=== PATIENT | female | born 2000 | race Caucasian/White ===

== ENCOUNTER 2020-04-24 18:46 | Observation (INO) | payer OTHER ==
[2020-04-24 19:48] LABS: Bilirubin Negative (Negative); Blood, Urine Negative (Negative); Clarity Turbid (Clear); Glucose, Urine (Dipstick) Normal (Negative); Ketone, Urine Negative (Negative); Leukocyte Negative Leu/uL (Negative); Nitrite 2+ (Negative); Protein, Urine (Dipstick) Negative (Neg-Trace); RBC/HPF 0-3 HPF (0-3); Specific Gravity, Urine 1.026 (1.002-1.036); Squamous Epithelial 0-3 HPF (0-3); Urobilinogen Normal mg/dL (Less than 2); WBC/HPF 0-3 HPF (0-3); pH, Urine 6.5 (5.0-9.0)
[2020-04-24 19:51] LABS: Bacteria/HPF 1+ HPF (None Seen)
[2020-04-24 20:01] LABS: #Eosinphils 0.1 thou/uL (0.0-0.7); #Lymphocytes 2.3 thou/uL (1.20-3.40); #Monocytes 0.6 thou/uL (0.11-0.59); #Neutrophils 5.8 thou/uL (1.40-6.50); %Basophils 0.3 % (0.0-1.0); %Eosinophils 1.3 % (0.0-10.0); %Lymphocytes 26.2 % (21.0-51.0); %Monocytes 7.2 % (0.0-10.0); %Neutrophils 65.1 % (42.0-75.0); Hemoglobin 14.6 g/dL (12.0-16.0); Mean Corpuscular HGB CONC 34.3 g/dL (32.0-36.0); Mean Corpuscular Hemoglobin 33.4 pg (27.0-31.0); Mean Corpuscular Volume 97.3 fL (78.0-98.0); Mean Platelet Volume 9.2 fL (7.4-10.4); Platelet Count 200 thou/uL (130-400); RBC Distribution Width 11.6 % (11.5-14.5); Red Blood Cell (RBC) Count 4.38 mill/uL (4.20-5.40); White Blood Cell (WBC) Count 8.9 thou/uL (4.8-10.8)
[2020-04-24] MEDS ORDERED: cefTRIAXone\\ROCEPHIN 1 GM VIAL ONE (21:31)
--- NOTE | 2020-04-24 21:32 | ULT ---
TRANSABDOMINAL AND ENDOVAGINAL PELVIC ULTRASOUND: HISTORY: Pelvic pain, intermittent x2 weeks. Vaginal bleeding with clots. Previous miscarriage. Serum beta hCG is 174,839 TECHNIQUE: Transabdominal and endovaginal imaging of the uterus is performed. Ovaries are interrogate d with grayscale, color flow, Doppler imaging and spectral wave analysis FINDINGS: Uterus is identified, measuring 11.5 x 6.9 x 7.9 cm. There is a heterogeneous echotexture focus along the anterior myometrium. This heterogeneous structure has multiple cystic foci within it. Lesion may be submucosal in location (external to the endometrial canal). There is an adjacent ill-defined a nechoic focus, measuring 2.1 x 1.8 x 2.5 cm. Within this anechoic focus, no evidence of a gestational sac, yolk sac or pole. The heterogeneous echotexture focus along the anterior myome trium measures 4.6 x 6.6 x 7.2 cm. Left ovary has a small anechoic focus likely representing a dominant follicle measuring 1 cm. Overall left ovary measures 3.2 x 1.7 x 2.2 cm. Right ovary has a normal echotexture measuring 2.1 x 2.4 x 4.4 cm. Free fluid: None Liver Doppler: Vascular flow IMPRESSION: 1. There is an intrauterine mass with multiple anechoic foci suggesting a multicystic structure. Imag ing features raise the possibility of a complete molar . Results of the study discussed with Dr. Ghosh 04/24/2020 at 9:29 PM Code CR Transcribed Date/Time: 04/24/2020 9:41 PM
[2020-04-24] MEDS ORDERED: Lidocaine 1% PF 5 ML VIAL ONE (21:52)
[2020-04-24] MEDS ORDERED: Zolpidem Tartrate 5 MG TAB PO PRN (23:31)
[2020-04-24] MEDS ORDERED: Promethazine HCl 25 MG/ML VIAL IM PRN (23:31)
[2020-04-24] MEDS ORDERED: Ondansetron PF 4 MG/2 ML Vial IVP PRN (23:31)
[2020-04-24] MEDS ORDERED: hydrALAZINE 20 MG/ML VIAL SLOW IVP PRN (23:31)
[2020-04-24] MEDS ORDERED: Ondansetron PF 4 MG/2 ML Vial ONE (23:42)
--- NOTE | 2020-04-24 23:46 | RAD ---
Exam: Chest one view HISTORY:Molar . Comparison: None FINDINGS: Cardiac silhouette: Normal Aorta: Unremarkable Pulmonary vessels: Normal Costophrenic angles: Clear LUNGS: No masses or consolidation. Pneumothorax: None Osseous abnormalities: None IMPRESSION: No acute cardiopulmonary process.
[2020-04-25 00:06] LABS: Mean Corpuscular HGB CONC 34.2 g/dL (32.0-36.0); Mean Corpuscular Hemoglobin 33.6 pg (27.0-31.0); Mean Corpuscular Volume 98.2 fL (78.0-98.0); Platelet Count 194 thou/uL (130-400); RBC Distribution Width 11.4 % (11.5-14.5); Red Blood Cell (RBC) Count 4.18 mill/uL (4.20-5.40); White Blood Cell (WBC) Count 10.8 thou/uL (4.8-10.8)
[2020-04-25 00:27] LABS: ALT (SGPT) 10 U/L (8-55); AST (SGOT) 10 U/L (5-34); Albumin 3.9 g/dL (3.5-5.0); Alkaline Phosphatase 63 U/L (40-110); Anion Gap 14 mmol/L (10-20); BUN (Urea Nitrogen) 13 mg/dL (7.0-18.7); Bilirubin, Total 0.7 mg/dL (0.2-1.2); Calc. Creatinine Clearance 0 mL/min (70-130); Calcium 8.5 mg/dL (7.8-10.44); Carbon Dioxide 21 mmol/L (22-29); Chloride 104 mmol/L (98-107); Estimated GFR-MDRD Greater than 90; Globulin 2.5 g/dL (2.4-3.5); Glucose 76 mg/dL (70-105); Potassium 3.7 mmol/L (3.5-5.1); Protein, Total 6.4 g/dL (6.0-8.3); Sodium 135 mmol/L (136-145)
--- NOTE | 2020-04-25 01:58 | HP ---
CHIEF COMPLAINT: Vaginal bleeding. HISTORY OF PRESENT ILLNESS: This patient is a 19-year-old presenting to the emergency room today with complaints of cramping and brown vaginal bleeding. The patient reports that she had a last menstrual period the 08 of February. In her evaluation the emergency room, there was concerns that the patient is experiencing a molar . She had a quantitative HCG of 174,000 and an ultrasound showing an intrauterine mass with multiple anechoic foci suggesting a multicystic structure suggestive of a complete molar and we were consulted for evaluation and management. On arrival, patient reiterated her story that last menstrual period was the 08 of February, had a positive test earlier this month that she has been attempting to get in to see her OB provider, Ms Arnold Sidney, who took care of her with a previous , but has been unable to make an appointment up to this point. She came to the emergency room because of the increased cramping. She has been feeling in the brownish discharge. The patient otherwise denies fever, cough, headache, chest pain, shortness of breath. She does experience nausea. Denies vomiting. Denies diarrhea or constipation. Denies new rashes, hip problems, knee problems, muscle weakness. She has a brownish discharge, but denies any significant vaginal bleeding or leakage of fluid, change in discharge, urinary urgency or frequency. PAST MEDICAL HISTORY: Negative. PAST SURGICAL HISTORY: Negative. OB HISTORY: She has had one term delivery and has had two miscarriages, one she reports to be at 16 weeks and the other one sounds to be about first trimester. SOCIAL HISTORY: Denies drug, alcohol, or tobacco use. PHYSICAL EXAMINATION: VITAL SIGNS: Reviewed and within normal limits. GENERAL: She appears to be in no acute distress. She is alert, oriented, cooperative, and pleasant to interact with. HEENT: Head is normocephalic, atraumatic. LUNGS: Clear to auscultation bilaterally. HEART: Regular rate and rhythm. ABDOMEN: Soft, nontender. EXTREMITIES: Nontender, nonedematous. LABORATORY DATA: Show a white count of 8.9, hemoglobin of 14.6, hematocrit 42.6 , and platelets of 200,000. Total beta quant of 174,839. CMP is pending. Blood type is O positive with a negative antibody screen. Urinalysis shows 2+ nitrites with 1+ bacteria and zero squamous cells. Ultrasound is reported in HPI. ASSESSMENT AND PLAN: The patient is a 19-year-old female with just over 10 weeks gestation. There is no evidence of a healthy intrauterine and some evidence of possible molar . The patient has had trouble establishing care in the community. We will be admitting her tonight with a plan for suction D and C in the morning. She has had a type and screen and will be made n.p.o. after midnight. We have briefly discussed the possible complications including excessive bleeding requiring transfusion. Tomorrow, the patient will be consented by myself and Dr. Cotter, who will be the physician doing the procedure. cxr clear cmp wnl Job ID: [id number] MTDD
[2020-04-25 03:07] VITALS: BMI 29.7
[2020-04-25] MEDS: Lactated Ringer's 1,000 ML IV SCH ×3 (03:55→14:35)
[2020-04-25] MEDS ORDERED: Scopolamine 1.5 mg/72 hour Patch ONE (07:54)
[2020-04-25] MEDS ORDERED: Ondansetron PF 4 MG/2 ML Vial ONE ×2 (07:54→09:58)
[2020-04-25] MEDS ORDERED: Famotidine/PF 20 mg/2ml Vial ONE (07:54)
[2020-04-25] MEDS ORDERED: Fentanyl 100 MCG/2 ML VIAL ONE (07:55)
[2020-04-25] MEDS ORDERED: Midazolam HCl 2 mg/2 ml Vial ONE (07:55)
[2020-04-25 08:58] LABS: SARS-CoV-2 NAA Rapid Test Not Detected (NotDetected)
[2020-04-25] MEDS ORDERED: Cephalexin 250 MG CAP PO SCH (09:00)
[2020-04-25] MEDS ORDERED: cefTRIAXone\\ROCEPHIN 1 GM VIAL ONE (09:31)
[2020-04-25] MEDS ORDERED: Azithromycin 1,000 MG in Sodium Chloride 0.9% 500 ML IVPB SCH (09:45)
[2020-04-25] MEDS ORDERED: Rocuronium Bromide 10 MG/ML (10ML VIAL) ONE (09:58)
[2020-04-25] MEDS ORDERED: Dexamethasone 20 MG/5 ML VIAL ONE (09:58)
[2020-04-25] MEDS ORDERED: PROPOFOL 200 MG/20 ML VIAL ONE (09:58)
[2020-04-25] MEDS ORDERED: Succinylcholine Chloride 20 MG/ML 10 ml SYRINGE FS ONE (09:58)
[2020-04-25] MEDS ORDERED: Lidocaine 1% PF 5 ML VIAL ONE (09:58)
[2020-04-25] MEDS ORDERED: Ketorolac Tromethamine 30 MG/ML VIAL ONE (09:58)
[2020-04-25] MEDS ORDERED: Acetaminophen/Codeine 30-300mg Tablet PO PRN (10:01)
--- NOTE | 2020-04-25 10:06 | PDOC.BPN ---
- Brief Progress Note OB D&C performed under transabd ultrasound. See dictation. Fabiola for outpatient pain med. Calling [facility] for outpatient follow up to follow HCGs
[2020-04-25] MEDS ORDERED: Promethazine HCl 25 MG/ML VIAL ONE (10:09)
--- NOTE | 2020-04-25 10:11 | PDOC.BPN ---
- Brief Progress Note Tissue order placed for D&C eval
[2020-04-25] MEDS ORDERED: Ibuprofen 800 MG TAB PO SCH (10:15)
--- NOTE | 2020-04-25 10:23 | OP ---
DATE OF PROCEDURE: 04/25/2020 PREOPERATIVE DIAGNOSIS: Suspected molar with active bleeding. POSTOPERATIVE DIAGNOSES: 1. Suspected molar with active bleeding. 2. Suspected molar gestation. PROCEDURES PERFORMED: OB suction dilation and curettage under ultrasound guidance. ASSISTANTS: 1. Kelley Hernandez MD (ultrasound provider transabdominally). 2. Also in room is, Saadia Valencia (M-3), not scrubbed in. ANESTHESIA: General. ANTIBIOTICS: Azithromycin 1 g. ESTIMATED BLOOD LOSS: Approximately 800 mL in the suction canister. FINDINGS: 1. There are no vulvovaginal lesions. 2. There is no active vaginal bleeding, but a scant amount. 3. Cervix was patent to allow an 8-mm curved plastic curette. 4. No evidence of perforation via transabdominal ultrasound. 5. Collapsed endometrial cavity compared to preprocedure ultrasound image. 6. No vaginal/cervical bleeding at the end of the procedure. 7. Suction tissue filled up one suction tray and this will go to pathology. PATHOLOGY SPECIMEN: Uterine contents. IV FLUIDS: Per Anesthesia record (lactated Ringer). URINE OUTPUT: About 200 mL or so in and out catheter before my arrival by the nursing staff. COMPLICATIONS: None. COUNTS: Correct. PATHOLOGY: Uterine contents. DISPOSITION: To recovery room in good and stable condition. The patient was not tachycardic or hypotensive at the end of the case. Her preoperative hemoglobin value was 14. Her Rh type is positive. DESCRIPTION OF PROCEDURE: After reviewing with Dr. Cary, who saw the patient initially, the patient's presentation and possible diagnosis, I encountered the patient in operating room C. She was prepped and draped and already placed in high lithotomy position. All pressure points had been adequately padded and deep hyperflexion had been avoided. External rotation was also avoided. The patient's vulva and vagina were prepped and draped in the usual sterile fashion and I placed a Graves bivalve speculum inside the vagina for visualization of the cervix. Findings were as above. A single-toothed tenaculum was placed on the anterior lip of the cervix for retraction. Gentle dilation of the internal cervical os was performed with a series of Ramirez cervical dilators. Using a #8 curved plastic curette, suction curettage was performed using the vacuum pressure of 40 to 50 mmHg. All passes were under ultrasound guidance. The procedure was brief, less than 10 to 15 minutes. EBL was about 800 due to the voluminous content of the cavity. At the end of the procedure, two clamps were placed on the cervix to hinder mild venous bleed from the exocervix. After about 2 minutes of cervical pressure, this was rendered hemostatic. No vaginal packs were left in the vagina. She was transported to recovery in good and stable condition without evidence of hemodynamic instability. She received Rocephin last night (within 12 hours) and this 1 g of Zithromax should cover her antibiotic prophylaxis. Job ID: [id number]
[2020-04-25 10:43] LABS: Hemoglobin 12.5 g/dL (12.0-16.0)
[2020-04-25] MEDS ORDERED: Promethazine HCl 25 MG/ML VIAL IM/IV PRN (10:47)
[2020-04-25] MEDS ORDERED: Ondansetron HCl/PF 4 MG/2 ML Vial IVP PRN (10:47)
--- NOTE | 2020-04-25 14:28 | PDOC.BPN ---
- Brief Progress Note PostOp Check Patient seen at bedside. A&O and aware of events. Need for F/U reviewed. No VB at this time. Pulse in 90s. I will give additional 1 liter LR for additional hydration.Then, OK for outpatient f/u. [facility] called for appoitment, they will contact her.
[2020-04-25] MEDS ORDERED: Lactated Ringer's 1,000 ML IV SCH (14:30)
[2020-04-25 16:09] VITALS: BP 99/54; TEMP 97.8
--- NOTE | 2020-04-27 13:58 | DIS ---
DATE OF ADMISSION: 04/24/2020 DATE OF DISCHARGE: 04/25/2020 PRINCIPAL DIAGNOSES: 1. Abnormal first trimester . 2. Suspected molar gestation. HOSPITAL COURSE: In brief, this patient was admitted by Dr. Cary who was on-call for suspected abnormal intrauterine in the first trimester. I evaluated the patient when I took over call, which was April 25, 2020, in the morning. She had already been scheduled for a suction D and C. I performed a suction D and C without complications and the pathology report was not available at time of her discharge. The working diagnosis was possible molar gestation. Please see the operative note dated that day. The patient was discharged home the same day after few hours of observation. The pathology specimen returned on April 27, 2020, which is when I am dictating this report. The clinical diagnosis was possible missed versus molar gestation. The contents by pathology show products of conception with immature chorionic villi and decidualized endometrium, but there was no evidence of molar gestation. Job ID: [id number]
== END 2020-04-25 15:55 | disposition home or self-care (01) ==
LOC: ERS 18:46 → 3SW 23:34
PROVIDERS: ADMIT Obstetrics & Gynecology; ATTEND Obstetrics & Gynecology
PROC: 10D17Z9 Manual Extraction of Products of Conception, Retained, Via Natural or Artificial Opening (ICD-10-PCS; principal; 2020-04-25)
DX: O03.1 Delayed or excessive hemorrhage following incomplete spontaneous abortion (principal); Z20.828 Contact with and (suspected) exposure to other viral communicable diseases
CPT/HCPCS: 36415; 71045; 76856; 80053; 81003; 81015; 84702; 85014; 85018; 85025; 86850; 86900; 86901; 87077; 87086; 87186; 88305; 96360; 96361; 96372; G0378; J0696; J1100; J1885; J2250; J2405; J2550; J2704; J3010; S0028; U0002